=== PATIENT | male | born 1960 | race Native Hawaiian/Other Pacific Islander ===

== ENCOUNTER 2016-12-04 11:03 | Day surgery (SDC) | payer OTHER | END 2016-12-04 17:40 | disposition home or self-care (01) | LOC: OR 11:03 | PROC: 0DBH8ZZ Excision of Cecum, Via Natural or Artificial Opening Endoscopic (ICD-10-PCS; principal; 2016-12-04) | PROC: 0DBK8ZZ Excision of Ascending Colon, Via Natural or Artificial Opening Endoscopic (ICD-10-PCS; 2016-12-04) | DX: K63.5 Polyp of colon (principal); D12.0 Benign neoplasm of cecum; K57.30 Diverticulosis of large intestine without perforation or abscess without bleeding; K64.8 Other hemorrhoids; K92.1 Melena; Z12.11 Encounter for screening for malignant neoplasm of colon | CPT/HCPCS: 36415; 80074; 80076; J2001; J2250; J2405; J2704; J2765; J3010; S0028 ==

== ENCOUNTER 2016-12-31 08:05 | Outpatient (CLI) | payer OTHER | END 2016-12-31 18:59 | disposition home or self-care (01) | LOC: US 08:05 | DX: E80.6 Other disorders of bilirubin metabolism (principal) ==

== ENCOUNTER 2017-06-02 16:13 | Outpatient (CLI) | payer BC | END 2017-06-02 20:29 | disposition home or self-care (01) | LOC: RAD 16:13 | DX: M25.511 Pain in right shoulder (principal) ==

== ENCOUNTER 2017-08-04 08:06 | Outpatient (CLI) | payer BC | END 2017-08-04 21:47 | disposition home or self-care (01) | LOC: MRI 08:06 | DX: M25.511 Pain in right shoulder (principal) ==

== ENCOUNTER 2018-04-23 08:56 | Outpatient (CLI) | payer BC ==
[2018-04-23 09:38] LABS: POTASSIUM 4.2 mmol/L (3.6-5.2)
== END 2018-04-23 19:21 | disposition home or self-care (01) ==
LOC: LABW 08:56
PROVIDERS: Nurse Practitioner
DX: R74.8 Abnormal levels of other serum enzymes (principal)
CPT/HCPCS: 36415; 80053

== ENCOUNTER 2018-04-30 08:43 | Outpatient (CLI) | payer OTHER ==
[2018-04-30 09:36] LABS: POTASSIUM 4.3 mmol/L (3.6-5.2)
== END 2018-04-30 22:30 | disposition home or self-care (01) ==
LOC: LABW 08:43
PROVIDERS: Student in an Organized Health Care Education/Training Program
DX: R74.8 Abnormal levels of other serum enzymes (principal)
CPT/HCPCS: 36415; 80053

== ENCOUNTER 2018-06-29 07:32 | Outpatient (CLI) | payer OTHER | END 2018-06-29 21:45 | disposition home or self-care (01) | LOC: US 07:32 | DX: R94.5 Abnormal results of liver function studies (principal) ==

== ENCOUNTER 2018-08-12 09:06 | Day surgery (SDC) | payer OTHER | END 2018-08-12 15:05 | disposition home or self-care (01) | LOC: OR 09:06 | PROC: 0DB38ZZ Excision of Lower Esophagus, Via Natural or Artificial Opening Endoscopic (ICD-10-PCS; principal; 2018-08-12) | PROC: 0DB68ZZ Excision of Stomach, Via Natural or Artificial Opening Endoscopic (ICD-10-PCS; 2018-08-12) | DX: K29.50 Unspecified chronic gastritis without bleeding (principal); K22.10 Ulcer of esophagus without bleeding; K44.9 Diaphragmatic hernia without obstruction or gangrene; R11.2 Nausea with vomiting, unspecified; R10.13 Epigastric pain; K21.0 Gastro-esophageal reflux disease with esophagitis; R94.5 Abnormal results of liver function studies | CPT/HCPCS: J1100; J2001; J2250; J2405; J2704 ==

== ENCOUNTER 2018-09-29 07:18 | Outpatient (CLI) | payer OTHER | END 2018-09-29 19:13 | disposition home or self-care (01) | LOC: NM 07:18 | DX: R11.0 Nausea (principal) | CPT/HCPCS: A9541 ==

== ENCOUNTER 2020-10-31 09:19 | Outpatient (CLI) | payer OTHER ==
[2020-10-31 09:45] LABS: PLATELET COUNT 174 K/uL (142-355)
== END 2020-10-31 19:12 | disposition home or self-care (01) ==
LOC: LABW 09:19
PROVIDERS: ATTEND Nurse Practitioner Family
DX: B35.3 Tinea pedis (principal); B35.1 Tinea unguium
CPT/HCPCS: 36415; 80053; 85027

== ENCOUNTER 2022-03-18 08:54 | Outpatient (CLI) | payer OTHER | END 2022-03-18 20:26 | disposition home or self-care (01) | LOC: RESP 08:54 | PROVIDERS: ATTEND Nurse Practitioner | DX: R07.89 Other chest pain (principal) ==

== ENCOUNTER 2022-11-12 18:40 | Emergency (ER) | payer BC ==
[~2022-11-12] VITALS: Ht 190.5 cm; Wt 108.9 kg
[2022-11-12 18:50] VITALS: TEMP 99.6
[2022-11-12 20:14] LABS: POTASSIUM 3.9 mmol/L (3.6-5.2)
[2022-11-12 20:25] LABS: PLATELET COUNT 154 K/uL (142-355)
[2022-11-12 22:52] VITALS: BP 140/81
== END 2022-11-12 22:52 | disposition home or self-care (01) ==
LOC: ED 18:40
PROVIDERS: Family Medicine
DX: B34.9 Viral infection, unspecified (principal); R11.2 Nausea with vomiting, unspecified
CPT/HCPCS: 36415; 80053; 85027; 87502; 87635; 87651; 96367; 96374; 99284; J1885; J2405; U0003